=== PATIENT | female | born 1935 | race Caucasian/White ===

== ENCOUNTER 2024-02-22 02:06 | Inpatient (IN) | payer MEDICARE, BC, SELFPAY ==
[2024-02-22] VITALS (17 sets, daily range): BP systolic 124–189; BP diastolic 61–102; PULSE 69–100; BMI 24.2; BMI 24.0
[2024-02-22 00:37] LABS: % Basophils 0.4 % (0-2); % Eosinophils 0.6 % (0-6); % Immature Granulocytes 0.5 % (0-0.5); % Lymphocytes 9.6 % (20.5-51.1); % Monocytes 5.2 % (1.7-9.3); % Neutrophils 83.7 % (42.2-75.2); Absolute Eosinophils 0.1 10^3/uL (0-0.7); Absolute Immature Granulocytes 0.1 10^3/uL (0-0.05); Absolute Lymphocytes 1.1 10^3/uL (1.2-3.4); Absolute Monocytes 0.6 10^3/uL (0.1-0.6); Absolute Neutrophils 9.2 10^3/uL (1.4-6.5); Hematocrit 36.6 % (37.0-47.0); Hemoglobin 12.9 g/dL (12.0-16.0); Mean Corp Hgb Conc. 35.2 g/dL (33.0-37.0); Mean Corpuscular Hgb 30.4 pg (27.0-31.0); Mean Corpuscular Volume 86.1 fL (81.0-99.0); Mean Platelet Volume 9.4 fL (7.4-10.4); Nucleated Red Blood Cells % 0 %; Platelet Count 244 10^3/uL (130-400); Red Blood Cell Count 4.25 10^6/uL (4.20-5.40); Red Cell Dist. Width 12.9 % (11.5-14.5)
--- NOTE | 2024-02-22 00:37 | ED.GENMED ---
History of Present Illness
<ANNALISA Goyal - Last Filed: 02/22/24 02:36>
General
Chief Complaint: Rectal Bleeding
Source: patient and family (daughter)
Exam Limitations: none
Time Seen by Provider: 02/22/24 00:22
Travel History
Have you had any contact with someone who has COVID-19?: No
Do you have any symptoms of coronavirus? Fever > 100 degrees, chills, cough, shortness of breath, sore throat, loss of taste or smell, muscle aches, or headache?: No
History of Present Illness
History of Present Illness:
88 year old female with hx of HTN, HLD, vasovagal syncope, IBS BIBA from home for an episode of rectal bleeding that occurred just prior to arrival. Pt states she has not had a BM for the past 4 days. Yesterday, she went to [facility] and had an orange
creamsicle frosty at about [id number]. Shortly after she developed abdominal cramping and nausea, vomiting, and diarrhea. She had one episode of vomiting. She has had multiple episodes of diarrhea before having bright red blood in her stool. She
admits to straining during BM. Blood was mixed with diarrhea. She reports diffuse mild abdominal discomfort and generalized weakness. States she is thirsty and her throat is dry. Denies fevers/chills, rectal pain, dysuria, hematuria, chest pain,
SOB, recent illness, sick contacts, recent travel. She has a hx of constipation and takes miralax every now and then. She was going to take miralax however she developed diarrhea. Also reports hx of hemorrhoids and will sometimes experience tinged
of blood in her stool however the blood in her stool tonight was more significant. She is on a daily aspirin.
Past History
<ANNALISA Goyal - Last Filed: 02/22/24 02:36>
Past History
ED Past Medical History: Asthma, HTN, Hypercholesterolemia and Other (IBS)
ED Past Surgical History: Gynecological (partial hysterectomy)
Social History
Tobacco: Non-smoker
Alcohol: Occasional
Drug: None
Personal:
Living: with family
Employment: Retired
Family History
Family History: Other (non-contributory )
Review of Systems
<ST Jay JayNH - Last Filed: 02/22/24 02:36>
Review of Systems
Allergies reviewed?: Yes
All Other Systems: ROS reviewed and negative except as documented in HPI and ROS
Constitutional: Reports other (generalized weakness)
EENT: Reports no symptoms
Respiratory: Reports no symptoms
Cardiac: Reports no symptoms
ABD/GI: Reports abdominal pain, nausea, vomiting, diarrhea and bloody stools
: Reports no symptoms
Musculoskeletal: Reports no symptoms
Skin: Reports no symptoms
Neurological: Reports no symptoms
Endocrine: Reports no symptoms
Hematologic/Lymphatic: Reports no symptoms
Psychiatric: Reports no symptoms
Phy Exam
<Pantera Mejia RUST - Last Filed: 02/22/24 02:36>
General Physical Exam
General Presentation: well appearing and no apparent distress
General age: appears stated age
General Skin: warm and dry
General Habitus: elderly
General Mental: alert
General Hydration: dry mucous membranes
Cardiovascular Exam
Cardiovascular Exam: regular rate/rhythm, no edema, no gallop and no murmur
Pulmonary Exam
Pulmonary Exam: lungs clear, no respiratory distress, no rales, no crackles, no rhonchi, no wheezing and no cough
Gastrointestinal Exam
Gastrointestinal Exam: normal bowel sounds, soft, no pulsatile mass, non distended and other (mild mid-abdominal discomfort to palpation)
Skin Exam
Skin Exam: normal color and warm/dry
Psychiatric Exam
Psychiatric Exam: normal mood/affect
Course
<ANNALISA Goyal - Last Filed: 02/22/24 02:36>
Orders/Labs/Results
Orders:
Orders
02/22/24 00:26
Cardiac Monitoring- Treatment ONCE
IV Insert/Care/Rem.- Treatment PRN
O2 Therapy [RESP] Urgent
Titrate/Wean O2 to maintain O2 sat greater than (%): 93
Special Instructions: MAINTAIN CONTINOUS O2 SATS > OR = 93%
Pulse Ox/spot Check [RESP] Urgent
Quantity: 1
Special Instructions: ON ROOM AIR
02/22/24 00:29
Type+Screen Urgent
Complete Blood Count/With Diff Urgent
Comprehensive Metabolic Panel Urgent
PTT Urgent
Prothrombin Time Urgent
02/22/24 00:30
Electrocardiogram (*1) Urgent
Reason for Study: Fatigue / Weakness
02/22/24 00:31
EKG- Treatment ONCE
02/22/24 00:51
0.9% Sodium Chloride 500 ml [Nss] 500 ml IV BOLUS
02/22/24 01:08
CT Abd/pelvis W Iv Cont Urgent
Comment:
Reason For Exam: lower abdominal pain
Stool Culture Urgent
SAMANTHA Source: Feces/Stool
Specimen Description:
02/22/24 01:16
Pantoprazole [Protonix IV] 40 mg IV NOW STA
02/22/24 01:36
Admit/Transfer Patient As Directed
Co-Sign Provider:
Level of Care: Inpatient admission
Assign to:: Telemetry
Physician / Group: htay
Diagnosis: acute hematochezia LGB
Reason for Telemetry: Other
Other Reason for Telemetry: acute hematochezia LGB
Date to Stop Telemetry: 02/24/24
Time to Stop Telemetry: 11:00
Reason for Hospitalization: acute hematochezia LGB
Expected length of stay greater than two midnights?: Yes
ELOS- Estimated Length of Stay in days: 3
I certify the patient meets the requirements for IP care: Yes
02/22/24 01:38
Code Status As Directed
Resuscitation Status: Full Code
02/22/24 08:00
Lisinopril [Zestril] 5 mg PO DAILY
02/24/24 11:00
DC Protocol for Telemetry ONCE
Abnormal Lab Results
02/22/24
00:29
WBC 11.0 H 10^3/uL
(4.8-10.8)
Hct 36.6 L %
(37.0-47.0)
Abs Immat Gran (auto) 0.1 H 10^3/uL
(0-0.05)
Absolute Neuts (auto) 9.2 H 10^3/uL
(1.4-6.5)
Absolute Lymphs (auto) 1.1 L 10^3/uL
(1.2-3.4)
Neutrophils % 83.7 H %
(42.2-75.2)
Lymphocytes % 9.6 L %
(20.5-51.1)
Glucose 142 H mg/dl
(70-99)
02/22/24 00:29
02/22/24 00:29
Vital Signs
Initial and Last Documented VS:
Initial Vital Signs
Temp
98.2 F
02/22/24 00:17
Last Documented Vital Signs
Temp Pulse Resp BP Pulse Ox
98.2 F 81 18 184/74 98
02/22/24 00:20 02/22/24 02:00 02/22/24 00:20 02/22/24 01:46 02/22/24 02:00
<Arnol Zavala MD - Last Filed: 02/22/24 02:39>
Orders/Labs/Results
Orders:
Orders
02/22/24 00:26
Cardiac Monitoring- Treatment ONCE
IV Insert/Care/Rem.- Treatment PRN
O2 Therapy [RESP] Urgent
Titrate/Wean O2 to maintain O2 sat greater than (%): 93
Special Instructions: MAINTAIN CONTINOUS O2 SATS > OR = 93%
Pulse Ox/spot Check [RESP] Urgent
Quantity: 1
Special Instructions: ON ROOM AIR
02/22/24 00:29
Type+Screen Urgent
Complete Blood Count/With Diff Urgent
Comprehensive Metabolic Panel Urgent
PTT Urgent
Prothrombin Time Urgent
02/22/24 00:30
Electrocardiogram (*1) Urgent
Reason for Study: Fatigue / Weakness
02/22/24 00:31
EKG- Treatment ONCE
02/22/24 00:51
0.9% Sodium Chloride 500 ml [Nss] 500 ml IV BOLUS
02/22/24 01:08
CT Abd/pelvis W Iv Cont Urgent
Comment:
Reason For Exam: lower abdominal pain
Stool Culture Urgent
SAMANTHA Source: Feces/Stool
Specimen Description:
02/22/24 01:16
Pantoprazole [Protonix IV] 40 mg IV NOW STA
02/22/24 01:36
Admit/Transfer Patient As Directed
Co-Sign Provider:
Level of Care: Inpatient admission
Assign to:: Telemetry
Physician / Group: htay
Diagnosis: acute hematochezia LGB
Reason for Telemetry: Other
Other Reason for Telemetry: acute hematochezia LGB
Date to Stop Telemetry: 02/24/24
Time to Stop Telemetry: 11:00
Reason for Hospitalization: acute hematochezia LGB
Expected length of stay greater than two midnights?: Yes
ELOS- Estimated Length of Stay in days: 3
I certify the patient meets the requirements for IP care: Yes
02/22/24 01:38
Code Status As Directed
Resuscitation Status: Full Code
02/22/24 08:00
Lisinopril [Zestril] 5 mg PO DAILY
02/24/24 11:00
DC Protocol for Telemetry ONCE
Abnormal Lab Results
02/22/24
00:29
WBC 11.0 H 10^3/uL
(4.8-10.8)
Hct 36.6 L %
(37.0-47.0)
Abs Immat Gran (auto) 0.1 H 10^3/uL
(0-0.05)
Absolute Neuts (auto) 9.2 H 10^3/uL
(1.4-6.5)
Absolute Lymphs (auto) 1.1 L 10^3/uL
(1.2-3.4)
Neutrophils % 83.7 H %
(42.2-75.2)
Lymphocytes % 9.6 L %
(20.5-51.1)
Glucose 142 H mg/dl
(70-99)
02/22/24 00:29
02/22/24 00:29
Vital Signs
Initial and Last Documented VS:
Initial Vital Signs
Temp
98.2 F
02/22/24 00:17
Last Documented Vital Signs
Temp Pulse Resp BP Pulse Ox
98.2 F 81 18 184/74 98
02/22/24 00:20 02/22/24 02:00 02/22/24 00:20 02/22/24 01:46 02/22/24 02:00
<ANNALISA Goyal - Last Filed: 02/22/24 02:36>
MDM/Problems Addressed
Differential Diagnosis Includes:
hemorrhoidal bleed, lactose intolerance, ischemic colitis, diverticulitis, diverticulosis
MDM/Problems Addressed:
88 year old female who presents with an episode of bloody stool that occurred just prior to arrival.
Chronic conditions affecting care: HTN, Asthma and Cancer
<ANNALISA Goyal - Last Filed: 02/22/24 02:36>
*Critical Care Note
Total Time (30-74mins, 75-104mins- exclusive of procedures): Not Applicable
<Arnol Zavala MD - Last Filed: 02/22/24 02:39>
*EKG
Interpreted by ED Provider?: Yes
EKG Intrepretation Date: 02/22/24
Heart Rate: 63
Rate: normal
Rhythm: sinus
Tynan: normal axis
ED Attending Note
<ANNALISA Goyal - Last Filed: 02/22/24 02:36>
-
Portions of this chart may have been created with voice recognition software.� Occasional wrong word or��sound alike� substitutions may have occurred due to the inherent limitations of voice recognition software.
<Arnol Zavala MD - Last Filed: 02/22/24 02:39>
ED Attending Note
Patient seen and examined by attending physician: Yes
ED Attending Note:
Patient presents to ED secondary to multiple episodes of diarrhea, which has become bloody with last 3 diarrheal episodes, along with abdominal cramping sensation. Patient reports generalized weakness. Denies dizziness or shortness of breath.
Denies recent change in medications or diet. Denies previous history of similar symptoms. Patient takes aspirin 81 mg daily. Denies recent illness. Denies recent use of antibiotics.
Physical Exam
General: mild distress, not acutely ill. afebrile
Head: nc/at. eomi
Neck: supple. no meningeal signs.
Heart: s1/s2 regular rate and rhythm, no murmur. equal radial pulses.
Lungs: no acute respiratory distress. clear bilaterally
Abdomen: normal bowel sounds. no focal tenderness. no distention. Rectal exam (Bettye RN, at bedside): brown stool, heme positive. Small fissure noted at 12 o'clock without active bleeding
Neuro: alert and oriented. no focal neurological deficits
Skin: no rash
Psychiatric: well kept. interactive and cooperative
Extremities: no edema. no calf tenderness
H/H noted. Pt remains hemodynamically stable. Will admit for further evaluation and treatment.
CT abd/pel ordered due to persistent abdominal discomfort.
CT abd/pel: ischemic colitis findings. Zosyn given. Notified GI () via [employer].
Discharge Plan
Departure
Patient Disposition: Admit
Date of Disposition: 02/22/24
Time of Disposition: 01:17
Admit to: Telemetry
Presentation/result/management discussed w/ accepting MD/DO: Hospitalist
Discharge Problem:
GI bleed
Interventions
Interventions:
*Risk Screen - Suicide Last Done: 02/22/24 00:20
*General Assessment Last Done: 02/22/24 00:20
*Neglect/Abuse Screening Last Done: 02/22/24 00:20
ED- Fall Risk Assessment Last Done: 02/22/24 00:39
*ED COVID-19 Vaccine History Last Done: 02/22/24 00:20
*Nursing Disposition Last Done: 02/22/24 02:34
YG-Sscykr-Wkdgxkptin Assessment Last Done: 02/22/24 01:03
ED- Cardiac Assessment Last Done: 02/22/24 00:39
ED- Pulmonary Assessment Last Done: 02/22/24 00:39
Discharge Date and Time
Discharge Date/Time: 02/22/24 02:35
[2024-02-22 00:49] LABS: ALT (SGPT) 16 U/L (0-35); AST (SGOT) 25 U/L (14-36); Albumin 4.5 g/dl (3.5-5.0); Alkaline Phosphatase 75 U/L (38-126); Blood Urea Nitrogen 14 mg/dl (7-17); Calcium 9.9 mg/dl (8.4-10.2); Carbon Dioxide 26 mmol/L (22-30); Chloride 102 mmol/L (98-107); Estimated Creatinine Clearance 50 ml/min; Glucose 142 mg/dl (70-99); Potassium 4.1 mmol/L (3.5-5.1); Sodium 139 mmol/L (135-145); Total Protein 7.2 g/dl (6.3-8.2); eGFR > 60.00
[2024-02-22 00:57] LABS: APTT 26.6 Sec (23.4-35.0); INR 1.07; PT 13.7 Sec (11.4-14.6)
[2024-02-22] MEDS: NSS 500 IV (01:05)
--- NOTE | 2024-02-22 01:33 | HPS.HSE ---
Addendum entered and electronically signed by Avinash Comer MD 02/22/24 02:36:
Prelim CT AP: ischemic colitis
- agree with Zosyn
- GI was notified by ER
Original Note:
Family Physician
-
Family Physician: Gisel Guerrero
Chief Complaint
-
Blood pr rectum
History of Present Illness
83F HX HTN, HLD , IBS, vasovagal syncope on ASA seen at ER for evaluation of blood with BM
Abrupt onset of rectal bleed
- Yesterday evening she had orange cre[place]sty [place] [employer] [place]
- 1 - 2hrs later crampy abdominal pain,nausea , vomiting at dirrhea
- Then tonight noted blood mixed with dirrhea
- she has been constipated for last 4 days
- on daily Asa
Medical History
Past Medical History
Past Medical History: Reports HTN, Hypercholesterolemia and Other (IBS )
Past Surgical History: Reports Gynocological (partial hysterectomy))
Social History
Tobacco: Non-smoker
Alcohol: Occasional
Personal:
Living: With Family
Family History
Family History: Not pertinent
Allergies / Home Medications
Allergies reflects when Allergies were last updated in [employer].
Home Medications with original date entered in [employer]
Allergy/Medication List:
Allergies
Allergy/AdvReac Type Severity Reaction Status Date / Time
amoxicillin [Amoxicillin] AdvReac Severe diarrhea Verified 02/22/24 00:16
molds/dust Allergy Unknown Uncoded 02/22/24 00:16
Home Medications
aspirin 81 mg tablet,delayed release 81 mg PO HS 10/09/09
calcium carbonate 600 mg-vitamin D3 20 mcg (800 unit) tablet (Caltrate with Vitamin D3) 1 ea PO HS 10/09/09
multivitamin with folic acid 400 mcg tablet (Tab-A-Jessica) 1 tab PO HS 10/09/09
pravastatin 40 mg tablet 20 mg PO HS 10/09/09
lisinopril 5 mg tablet 5 mg PO DAILY 02/22/24
Review of Systems
-
Constitutional: Reports No Symptoms
EENT: Reports No Symptoms
Respiratory: Reports No Symptoms
Cardiac: Reports No Symptoms
Abdomen/GI: Reports Abdominal Pain, Nausea, Vomiting, Diarrhea and Bloody Stools
: Reports No Symptoms
Musculoskeletal: Reports No Symptoms
Skin: Reports No Symptoms
Neurological: Reports No Symptoms
Endocrine: Reports No Symptoms
Hematologic/Lymphatic: Reports No Symptoms
Psych: Reports No Symptoms
Physical Exam
Vital Signs
Vital Signs
Temp Pulse Resp BP Pulse Ox
98.2 F 72 18 189/78 97
02/22/24 00:20 02/22/24 00:20 02/22/24 00:20 02/22/24 00:20 02/22/24 00:20
Physical Exam
General: No Apparent Distress, Comfortable and Conversant
HEENT: NormoCephalic, Anicteric, Moist mucous membranes and Atraumatic
Respiratory: Clear
Cardiac: S1/S2 and Regular Rhythm; No Tachycardia
Breast: Deferred by me
GI: Soft, Non Tender, Non Distended and Normal Bowel Sounds
Rectal: Hem Positive (bown stool per ER attd )
Genito-urinary: Deferred by me
Musculoskeletal: No Edema
Skin: Warm and Dry
Neuro: AO x 3
Psych: Calm
Laboratory Results
-
02/22/24 00:29
02/22/24 00:29
Laboratory Results
PT 13.7 Sec (11.4-14.6) 02/22/24 00:29
INR 1.07 02/22/24 00:29
APTT 26.6 Sec (23.4-35.0) 02/22/24 00:29
Total Bilirubin 1.0 mg/dl (0.2-1.3) 02/22/24 00:29
AST 25 U/L (14-36) 02/22/24 00:29
ALT 16 U/L (0-35) 02/22/24 00:29
Alkaline Phosphatase 75 U/L (38-126) 02/22/24 00:29
Data Reviewed
-
Medical Tests (Nuc Med, Echo, EKG etc): Report Reviewed by me
Lab Data: Labs Reviewed by me
Impression/Plan
-
Reviewed VS: Afebrile BP 188/78 HR 70s
Data
WCC 11
Hgb 12.9 - was 12.7 08/26/23
Unremarkable CMP
BG 142
EKG report
NORMAL SINUS RHYTHM
NORMAL ECG
WHEN COMPARED WITH ECG OF 03-AUG-2021 12:07,
NO SIGNIFICANT CHANGE WAS FOUND
Stool Cx sent
CT AP with IV cont: pending
NO PRIOR hospitalist admission:
ASSESSMENT & PLAN
Acute hematochezia LGIB
DDX: infective colitis vs ischemic colitis vs hemorrhoids
- preceded by acute enterocolitis symptoms
- Hemodynamically stable
- Hgb 12.9
- NPO and IVF
- T & S
- Blood consented and scanned
- held ASA
- H & H
- pending CT AP with IV cont
- GI consult
Systolic HTN
Essential HTN
- IV Hydralazine PRN for SBP > 165, DBP > 110
- cont Lisinopril - hold for SBP < 130
HX IBS
HX vasovagal syncope
DVT Px: SCD
Code: Full
IP TLM
[2024-02-22] MEDS: PROTONIX IV 40 MG IV ×2 (01:48→07:26)
[2024-02-22] MEDS: ZOSYN 50 IV ×4 (02:29→20:56)
[2024-02-22 03:02] LABS: Hematocrit 36.6 % (37.0-47.0); Hemoglobin 12.8 g/dL (12.0-16.0)
[2024-02-22 03:03] LABS: Lactic Acid 1.3 mmol/L (0.7-2.0)
[2024-02-22] MEDS: NSS 1000 IV (03:27)
[2024-02-22 03:29] LABS: ALT (SGPT) 15 U/L (0-35); AST (SGOT) 21 U/L (14-36); Alkaline Phosphatase 77 U/L (38-126); Blood Urea Nitrogen 12 mg/dl (7-17); Calcium 9.5 mg/dl (8.4-10.2); Carbon Dioxide 20 mmol/L (22-30); Chloride 109 mmol/L (98-107); Estimated Creatinine Clearance 50 ml/min; Glucose 128 mg/dl (70-99); Sodium 139 mmol/L (135-145); Total Bilirubin 1.1 mg/dl (0.2-1.3); Total Protein 6.7 g/dl (6.3-8.2); eGFR > 60.00
--- NOTE | 2024-02-22 03:31 | VATNOTE ---
H/H STABLE AT 12.8/32.6. WILL NOT ESTABLISH 2ND LARGE BORE IV AT THIS TIME.
[2024-02-22] MEDS: LIDOCAINE 4% PATCH 1 PATCH TOPICAL ×2 (04:44→20:56)
--- NOTE | 2024-02-22 06:54 | CON.GI ---
Addendum entered and electronically signed by Bibiana Hamilton DO 02/22/24 10:36:
Patient seen and examined independently of MAGDALENA. I agree with her note with my additions below
Jayleen is an 88-year-old female with history of hypertension, chronic constipation who comes in with acute onset abdominal pain after no bowel movements after 4 days. On while sitting on the toilet became diaphoretic and almost syncopized. Then
onset of nausea vomiting bowel movement started which then turned bloody. Her last bloody bowel movement was last night. On admission she has no severe risk factors for significant ischemia.
Her white count is 11,000, sodium 139, no LDH drawn but lactic acid was normal at 1.3. She is normotensive,, hemoglobin 11.7. She had a similar episode back in 2020 but at that time did not have any rectal bleeding. She does not take anything for
constipation other than occasional MiraLAX. She does have some mild dysphagia-like symptoms and indigestion and takes Gaviscon.
Her last colonoscopy was 2005 and was normal at that time. She is on a daily aspirin and pravastatin.
# Likely mild ischemic colitis -supportive therapy
-- Ideally flexible sigmoidoscopy for confirmation
-- Clear liquids/bowel rest, IV fluids, broad-spectrum antibiotics for now especially in the setting of bleeding
-- Reviewed CT scan -the distribution of her inflammation is more of the SHARATH, doubt embolic event but more likely low flow state during straining and constipation -consider vascular consult
-- Goal in the future will be prevention of constipation with daily MiraLAX
-- Once daily PPI for now
Original Note:
Consultation
-
Date/Time Consultation Requested: 02/22/24 0240
Date/Time Consultation Performed: 02/22/24 0800
Requesting Provider: Radha Comer MD
Performing Provider: MAGDALENA Lees, Bibiana Hamilton DO
Reason for Consultation: bloody stools
Medical History
Chief Complaint / HPI
Chief Complaint: rectal bleeding
History of Present Illness:
Pt is a 88yo with hx intermittent asthma, basal cell CA, HTN, hypercholesterolemia, vasovagal syncope and chronic constipation. She relates she went to [facility] yesterday then had a frosty from [employer] then went to the [employer] store. On return home
she had crampy pain after no stool for 4 days which is typical for her. She had sweat and feeling of passing out prompting her to lay on floor. She passed hard stool then soft stool with onset of nausea and vomiting food she had eaten. She then
started with blood stool til about midnight .On admission WBC 11,000 with otherwise stable labs . CT concern for ischemic colitis with SMA and SHARATH watershed territory. also noted moderate HH, non obstructing renal stones, atherosclerosis and DDD.
Last colonoscopy [address] Garvin with diverticulosis, external and internal hemorrhoids.
She admits to hx GERD with gaviscon as needed. She denies chronic dysphagia, vomiting other than yesterday. She has chronic constipation with stools every 4-5 days. No chronic laxative regiment. Will add miralax but not til day 4 or 5. After
passes stools she will have diarrhea. Saw blood yesterday but typically does not have rectal bleeding.
Past Medical History
Past Medical History: Asthma, Cancer (melanoma, basal cell CA), HTN, Hypercholesterolemia and Other (vasovagal syncope, IBS, DDD, diverticulosis, hemorrhoids )
Past Surgical History: Other (partial hysterectomy, melanoma removal, cataract lens implants, mohs surgery)
Social History
Tobacco: Non-Smoker
Alcohol: Occasional (rare)
Drug: None
Personal:
Living: With Family
Employment: Retired
Family History
Family History: Reviewed & Not Pertinent
Allergies / Home Medications
Allergy/AdvReac Type Severity Reaction Status Date / Time
amoxicillin [Amoxicillin] AdvReac Severe diarrhea Verified 02/22/24 00:16
molds/dust Allergy Unknown Uncoded 02/22/24 00:16
�Medication �Instructions �Recorded
aspirin 81 mg tablet,delayed 81 mg PO HS 10/09/09
release
calcium carbonate 600 mg-vitamin 1 ea PO HS 10/09/09
D3 20 mcg (800 unit) tablet
(Caltrate with Vitamin D3)
multivitamin with folic acid 400 1 tab PO HS 10/09/09
mcg tablet (Tab-A-Jessica)
pravastatin 40 mg tablet 20 mg PO HS 10/09/09
lisinopril 5 mg tablet 5 mg PO DAILY 02/22/24
Review of Systems
-
History Source: Patient
Constitutional: Reports Weight Loss (recent issue with teeth with some wt loss ) and Other (sweats with onset of abdominal pain and straining )
EENT: Reports No Symptoms
Respiratory: Reports No Symptoms
Abdomen/GI: Reports Abdominal Pain, Nausea, Vomiting, Constipated and Bloody Stools
: Reports No Symptoms
Musculoskeletal: Reports No Symptoms
Skin: Reports No Symptoms
Neurological: Reports Weakness
Endocrine: Reports No Symptoms
Hematologic/Lymphatic: Reports Bleeding
Vital Signs
Temp Pulse Resp BP Pulse Ox
98.5 F 73 16 180/74 97
02/22/24 03:00 02/22/24 03:00 02/22/24 03:00 02/22/24 03:00 02/22/24 04:57
Physical Exam
Exam
General: Well Developed, Well Nourished and No Apparent Distress
HEENT: Normocephalic
Respiratory: Clear
Cardiac: Regular Rhythm
GI: Soft, Non Distended and Tender (mild diffuse )
Musculoskeletal: No Clubbing and No Cyanosis
Skin: Warm and Dry
Neuro: Awake, Alert and AO x 3
Psych: Calm
Results
WBC 11.0 10^3/uL (4.8-10.8) H 02/22/24 00:29
Hgb 12.8 g/dL (12.0-16.0) 02/22/24 02:55
Hct 36.6 % (37.0-47.0) L 02/22/24 02:55
MCV 86.1 fL (81.0-99.0) 02/22/24 00:29
Plt Count 244 10^3/uL (130-400) 02/22/24 00:29
Absolute Neuts (auto) 9.2 10^3/uL (1.4-6.5) H 02/22/24 00:29
PT 13.7 Sec (11.4-14.6) 02/22/24 00:29
INR 1.07 02/22/24 00:29
APTT 26.6 Sec (23.4-35.0) 02/22/24 00:29
Sodium 139 mmol/L (135-145) 02/22/24 02:55
Potassium 4.0 mmol/L (3.5-5.1) 02/22/24 02:55
Chloride 109 mmol/L (98-107) H 02/22/24 02:55
Carbon Dioxide 20 mmol/L (22-30) L 02/22/24 02:55
BUN 12 mg/dl (7-17) 02/22/24 02:55
Creatinine 0.5 mg/dL (0.6-1.0) L 02/22/24 02:55
Calcium 9.5 mg/dl (8.4-10.2) 02/22/24 02:55
Total Bilirubin 1.1 mg/dl (0.2-1.3) 02/22/24 02:55
AST 21 U/L (14-36) 02/22/24 02:55
ALT 15 U/L (0-35) 02/22/24 02:55
Alkaline Phosphatase 77 U/L (38-126) 02/22/24 02:55
Diagnostic Image Results:
02/22/24 CT Abd/pelvis W Iv Cont
Findings are concerning for ischemic colitis in the SMA-SHARATH watershed territory. No free air. No free fluid or fluid collection. No bowel obstruction.
Incidental findings:
1. Moderate hiatal hernia.
2. Nonobstructing calcification right kidney. No hydronephrosis.
3. Prior hysterectomy. Moderate pelvic floor laxity.
4. Moderate atherosclerotic vascular disease of the aorta. No aneurysm. 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
5. Multilevel degenerative disk and joint disease with scoliosis.
Prior GI Procedures:
EGD: none
Colonoscopy: [address] Garvin with diverticulosis, external and internal hemorrhoids.
Assessment / Plan
-
Pt is a 88yo with hx intermittent asthma, basal cell CA, HTN, hypercholesterolemia, vasovagal syncope and chronic constipation. She relates she went to [facility] 02[place]20 then had a frosty from [employer] then went to then [employer]. On return home she
had crampy pain after no stool for 4 days which is typical for her. She had sweat and feeling of passing out prompting her to lay on floor. She passed hard stool then soft stool with onset of nausea and vomiting food she had eaten. She then
started with blood stool til about midnight .On admission WBC 11,000 with otherwise stable labs . CT concern for ischemic colitis with SMA and SHARATH watershed territory. also noted moderate HH, non obstructing renal stones, atherosclerosis and DDD.
Last colonoscopy [address] Garvin with diverticulosis, external and internal hemorrhoids.
-CT concern for ischemic colitis on CT
-straining followed hard then loose stool then blood with vomiting
-chronic constipation
-hx vasovagal syncope with episode prior to admission
other med problems:
-asthma
-basal cell CA
-HTN
-hypercholesterolemia
PLAN:
etiology of symptoms with concern for colitis- likely ischemic as noted on CT, vs infectious, stercoral colitis with hx constipation, IBD within differential
CT as noted
supportive care-- maintain adequate perfusion, hydration
discussed chronic constipation-- pt need bowel regiment-- start with Miralax daily adjusting dose as needed in 2-3 weeks add fiber supplement and consider adding senna
IV Zosyn
NPO advance to clears if tolerates and no bleeding low residue dinner
if not improving consider flex
sent message to arrange 3-4 week follow up
-
-
Thank you for consultation and allowing me to participate in the patient's care. Please call the reconditioner GI physician during the after hours with any questions or concerns.
[2024-02-22] MEDS: ZESTRIL 5 MG PO (07:27)
[2024-02-22 07:33] LABS: Hemoglobin 11.7 g/dL (12.0-16.0)
--- NOTE | 2024-02-22 10:53 | W.PN.UPDATE ---
Update Note
Progress Note Update
Seen and examined with ABDIEL Powell. Full consultation to follow. Briefly 88-year-old female who presented after developing crampy abdominal pain and diarrhea with blood following eating an orange-creamsicle at [employer]. She was evaluated by GI and
felt to possibly have ischemic colitis. CT scan had demonstrated some calcific plaque at the origin of the visceral vessels suggesting possible stenoses. Therefore we were consulted. Patient denies any postprandial pain otherwise. She has never
had postprandial pain. No food fear. No history of vascular issues that she is aware of (no prior history of any peripheral arterial or cardiac/coronary interventions). Denies any tobacco use.
On exam she is awake and alert. Head is normocephalic and atraumatic. Eyes are anicteric. Neck is soft without jugular venous distention. Breathing is unlabored. Abdomen is soft, nondistended, mildly tender diffusely. No peritoneal signs.
Lower extremity with 2+ femoral, popliteal pulses palpable bilaterally. 1+/faint to right DP palpable, 1+ left PT palp. Feet are warm and pink and well-perfused, no rubor, no ulcerations.
CT scan images reviewed.
Plan/ Ischemic colitis
-I reviewed CT scan images. I spoke to tomography technologist and was able to have her upload thin cuts of the CT scan. When I reviewed the thin cuts (see select images below), there is no evidence of stenosis at the celiac or SMA origin or within
those vessels. There is some plaque more so at the origin of the celiac artery, but does not result in any significant stenosis. The SHARATH also is patent without significant stenosis. There is plaque in the vicinity of the origin of the SHARATH but at
that location in the aorta, the plaque is posterior and not abutting the origin of SHARATH. Therefore, there is no evidence of mesenteric stenoses. Nothing here for me to offer otherwise. Recommend continue GI workup and management as needed.
ORIGIN OF CELIAC:
ORIGIN OF SMA:
ORIGIN OF SHARATH:
--- NOTE | 2024-02-22 11:18 | CON.VAS ---
Consultation
Consultation Request
Date/Time Consultation Performed: 02/22/2024 1045
Requesting Provider: Hospitalist
Performing Provider: Anika Powell LEAD BUSINESS ANALYST-C for Aime Becerra MD
Reason for Consultation: Ischemic colitis with concern for SMA hemodynamically significant stenosis
Medical History
-
Chief Complaint: ABD pain with blood tinged stool
History of Present Illness:
This is an 88-year-old female with significant past medical history of asthma, hypertension, hyponatremia, and IBS who presented to [facility] ED after developing crampy abdominal pain and diarrhea with blood following eating an orange-creamsicle at
[employer]. She endorses that she usually suffers from constipation and has not had a bowel movement roughly 4 days, following straining she did expel a large stool ball with significant diarrhea following with a mix of bright red blood. Following
this episode of straining she did have a vasovagal response with lightheaded and dizziness but denies loss of consciousness. She endorses following her bowel movement she began experiencing abdominal pain. She does endorse history of hemorrhoids.
She was evaluated by GI and felt to possibly have ischemic colitis. CT scan had demonstrated some calcific plaque at the origin of the visceral vessels suggesting possible stenoses. Therefore vascular surgery was consulted. Patient denies any
postprandial pain otherwise. She has never had postprandial pain. No food fear. No history of vascular issues that she is aware of (no prior history of any peripheral arterial or cardiac/coronary interventions). Denies any tobacco use. She does
endorse minimal recent weight loss but attributes this to her ill fitting dentures, making it difficult for her to chew.
Past Medical History
Past Medical History: Asthma, Cancer (melanoma, basal cell CA), HTN, Hypercholesterolemia and Other (IBS, DDD, diverticulosis, hemorrhoids)
Past Surgical History: Gynecological (partial hysterectomy) and Other (melanoma removal, cataract lens implants, mohs surgery)
Social History
Tobacco: Non-Smoker
Alcohol: Occasional
Drug: None
Personal:
Living: With Family
Allergies / Home Medications
Allergy/AdvReac Type Severity Reaction Status Date / Time
amoxicillin [Amoxicillin] AdvReac Severe diarrhea Verified 02/22/24 00:16
molds/dust Allergy Unknown Uncoded 02/22/24 00:16
�Medication �Instructions �Recorded �Confirmed �Type
aspirin 81 mg tablet,delayed 81 mg PO HS 10/09/09 02/22/24 History
release
calcium carbonate 600 mg-vitamin 1 ea PO HS 10/09/09 02/22/24 History
D3 20 mcg (800 unit) tablet
(Caltrate with Vitamin D3)
multivitamin with folic acid 400 1 tab PO HS 10/09/09 02/22/24 History
mcg tablet (Tab-A-Jessica)
pravastatin 40 mg tablet 20 mg PO HS 10/09/09 02/22/24 History
lisinopril 5 mg tablet 5 mg PO DAILY 02/22/24 02/22/24 History
Review of Systems
-
History Source: Patient
Constitutional: Reports Weight Loss (Reports recent weight loss due to ill fitting dentures)
EENT: Reports No Symptoms
Respiratory: Reports No Symptoms
Cardiac: Reports No Symptoms
Abdomen/GI: Reports Abdominal Pain, Nausea, Diarrhea, Constipated and Bloody Stools
: Reports No Symptoms
Musculoskeletal: Reports No Symptoms
Skin: Reports No Symptoms
Neurological: Reports Weakness
Endocrine: Reports No Symptoms
Physical Exam
Vital Signs
Temp Pulse Resp BP Pulse Ox
98.4 F 71 14 156/67 96
02/22/24 11:00 02/22/24 11:00 02/22/24 11:00 02/22/24 11:00 02/22/24 11:00
Lab Results
02/22/24 02:55
Physical Exam
General: No Apparent Distress and Comfortable
HEENT: Normocephalic, Anicteric and Atraumatic
Respiratory: Non Labored Respirations
Cardiac: Negative JVD
GI: Soft, Non Distended and Tender (mildly tender diffusely. No peritoneal signs)
Musculoskeletal: No Edema
Skin: Warm, Dry and Other (Feet are warm and pink and well-perfused, no rubor, no ulcerations.)
Neuro: AO x 3
Pulses: Bilateral Femoral: +2, Bilateral Popliteal: +2, Right Dorsalis Pedis: +1 and Left Posterior Tibial: +1
Assessment / Plan
-
Assessment: 88-year-old female admitted for bloody stool and abdominal pain with CT scan concerning for ischemic colitis and concern for SMA origin stenosis
Plan:
Reviewed CT scan images with attending Dr. Aime Becerra who was able to upload thin cuts of the CT scan, which demonstrate no evidence of stenosis at the celiac or SMA origin or within those vessels. Per attending Dr. Aime Becerra 'there is some plaque
more so at the origin of the celiac artery, but does not result in any significant stenosis. The SHARATH also is patent without significant stenosis. There is plaque in the vicinity of the origin of the SHARATH but at that location in the aorta, the
plaque is posterior and not abutting the origin of SHARATH. Therefore, there is no evidence of mesenteric stenoses.'
There is no need for surgical intervention at this time, recommend continue GI workup and management as needed.
I performed this shared service with the attending. I evaluated the patient [id number] and have entered clinical documentation as shown in the encounter note. I performed the following component(s): history and physical exam. Note that medical
decision making is not final until attested by vascular attending.
[2024-02-22 13:04] LABS: Hematocrit 35.2 % (37.0-47.0); Hemoglobin 12.2 g/dL (12.0-16.0)
[2024-02-22] MEDS: MORPHINE SULFATE 2 MG IV (13:07)
--- NOTE | 2024-02-22 15:33 | CM ---
Initial assessment completed with patient who resides with her in a 2 story home with basement and 1/2 bath on 1st, B/B on 2nd, no steps into home, has a RW in home and no in-home services. FAMILY LAW MEDIATOR patient was independent and drove. No
psychiatric hospitalizations. Pharmacy is [facility] in [place] and ART MUSEUM AIDE is Gisel Guerrero NP. Anticipate no needs at discharge.
[2024-02-22 18:51] LABS: Hematocrit 31.1 % (37.0-47.0); Hemoglobin 10.9 g/dL (12.0-16.0)
[2024-02-23 02:05] LABS: Hematocrit 31.5 % (37.0-47.0); Hemoglobin 10.9 g/dL (12.0-16.0)
[2024-02-23] MEDS: ZOSYN 50 IV ×4 (02:28→19:39)
[2024-02-23 03:33] VITALS: BP 107/66; BP 130/80; BP 138/66; PULSE 83; PULSE 91
[2024-02-23] MEDS: NSS 1000 IV (06:53)
[2024-02-23 07:05] VITALS: BP 143/54
[2024-02-23 07:41] LABS: Hematocrit 33.9 % (37.0-47.0); Hemoglobin 11.4 g/dL (12.0-16.0); Mean Corp Hgb Conc. 33.6 g/dL (33.0-37.0); Mean Corpuscular Hgb 30.2 pg (27.0-31.0); Mean Corpuscular Volume 89.7 fL (81.0-99.0); Mean Platelet Volume 9.9 fL (7.4-10.4); Platelet Count 219 10^3/uL (130-400); Red Blood Cell Count 3.78 10^6/uL (4.20-5.40); Red Cell Dist. Width 13.2 % (11.5-14.5); White Blood Cell Count 12.1 10^3/uL (4.8-10.8)
[2024-02-23] MEDS: ZESTRIL 5 MG PO (08:17)
[2024-02-23] MEDS: PROTONIX IV 40 MG IV (08:18)
[2024-02-23] MEDS: MIRALAX 17 GRAMS PO (08:18)
--- NOTE | 2024-02-23 10:06 | W.PN.HOSP.TC ---
Today's Communication/Plan
-
Follow-up for recurrence of rectal bleeding. Continue bowel regimen.CW ABX.
DC planning
Assessment / Plan
Assessment / Plan
Acute hematochezia
Suspected ischemic colitis based on clinical presentation and neurological impression.
No evidence of obstruction of celiac artery. Appreciate vascular input.
EKG in sinus rhythm. No history of cardiac disease.
Unclear etiology. Based on the CAT scan it is watershed area. Advised to keep the blood pressure not too low, avoid dehydration and most importantly treat constipation. This is her first episode. Unclear the role of hypercoagulable workup.
Seems to be a mild case. Hemodynamically stable. Abdominal pain quickly improved.
Appreciate GI input.
Continue the bowel regimen and we will keep her on empirical antibiotics. Need to follow-up endoscopic eval.
Essential HTN
- BP under goal and not too low
HX IBS
HX vasovagal syncope
tolerating diet.
DC home when okay from GI standpoint.
Anticipated Discharge: Today
Subjective/Interval History
-
Date of Service: February 23, 2024
No BM or rectal bleeding today.
She was put on a solid diet which she had for breakfast and seems to tolerate without nausea vomiting or abdominal pain. No fever or chills.
Objective Data
-
Labs:
Laboratory Results
02/23/24 02/23/24
01:57 06:17
WBC 12.1 H
Hgb 10.9 L 11.4 L
Hct 31.5 L 33.9 L
Plt Count 219
Vital Signs:
Vital Signs
Temp Pulse Resp BP Pulse Ox
98.3 F 72 14 143/54 92
02/23/24 07:05 02/23/24 08:17 02/23/24 07:05 02/23/24 08:17 02/23/24 07:05
I&O
02/22/24 02/23/24 02/24/24
06:59 06:59 06:59
Intake Total 720 / 720
Balance 720 / 720
Review of Systems
-
Constitutional: Denies Fever
Respiratory: Denies Trouble Breathing
Cardiac: Denies Chest Pain or Palpitations
Abdomen/GI: Reports Abdominal Pain (much improved)
Neuro: Denies Dizzy
Physical Exam
-
General: No Apparent Distress
HEENT: Moist Mucous Membranes
Respiratory: Clear to Auscultation
Cardiac: Regular Rhythm and S1/S2
GI: Soft, Nondistended and Normal Bowel Sounds; Negative Tender (mild discomfort in left abdomen but Rebound, guarding or rigidity.)
Neuro: AO x 3
Psych: Calm; Negative Confused or Agitated
Data Reviewed
-
Labs: Labs Reviewed by me
[2024-02-23 11:00] VITALS: BP 124/61
[2024-02-23 15:00] VITALS: BP 140/70
--- NOTE | 2024-02-23 15:53 | W.PN.GI.CBS2 ---
Addendum entered and electronically signed by Bibiana Hamilton DO 02/23/24 18:09:
Patient seen and examined independently of BLACKSMITH HAMMER OPERATOR. I agree with her note with my additions below
Patient is still mildly tender and has had about 4 bowel movements today but they are mostly brown with minimal to no blood.
Her white count went up slightly from 11-12. She is afebrile. Hemoglobin stable at 11.4 with no transfusions. Vitals are stable, afebrile, normotensive, not tachycardic
--Would stick to more of a full liquid diet. I told her not to order any significant solid foods. Things like mashed potatoes would be okay
- Would continue antibiotics in the setting of bleeding to help prevent translocation of bacteria
--Currently refusing biopsy with flex sig. Told her if she comes back with this in the future she needs biopsies for confirmation and to look for ulceration
--No point in really doing this outpatient at her age when she is feeling good.
� The goal is prevention for reoccurrence. Highly recommend prevention of constipation.
--She likely has been getting recurrent episodes of this and will have no bowel movements for 5 days then explosive with pain and near syncope
� Patient and daughters are aware that she will stay on once daily MiraLAX to prevent episodes. She is in agreement
--If she does well clinically, potential discharge tomorrow but would finish up at least a 7-day course of antibiotics
-- follow up with PCP, then GI in a 1-2 months
Original Note:
Today's Communication / Plan
-
etiology of symptoms with concern for colitis- likely ischemic as noted on CT, vs infectious, stercoral colitis with hx constipation, IBD within differential
supportive care-- maintain adequate perfusion, hydration
c-diff, giardia/crypto neg culture pending
discussed chronic constipation-- pt need bowel regiment-- cont Miralax daily adjusting dose as needed in 2-3 weeks add fiber supplement and consider adding senna- stressed to family to encourage compliance with bowel regiment
IV Zosyn
discussed again about flex with patient and family -- she is not sure she wants to proceed-- she will further review with Dr. Hamilton-- she is agreeable for follow up and if any recurrent process would agree to inpatient flex
sent message 02/21 to office to arrange 3-4 week follow up
s/p vascular eval
family updated
Assessment / Plan
-
Pt is a 88yo with hx intermittent asthma, basal cell CA, HTN, hypercholesterolemia, vasovagal syncope and chronic constipation. She relates she went to [facility] 02/20 then had a frosty from [employer] then went to then [employer]. On return home she
had crampy pain after no stool for 4 days which is typical for her. She had sweat and feeling of passing out prompting her to lay on floor. She passed hard stool then soft stool with onset of nausea and vomiting food she had eaten. She then
started with blood stool til about midnight .On admission WBC 11,000 with otherwise stable labs . CT concern for ischemic colitis with SMA and SHARATH watershed territory. also noted moderate HH, non obstructing renal stones, atherosclerosis and DDD.
Last colonoscopy [address] Garvin with diverticulosis, external and internal hemorrhoids.
-CT concern for ischemic colitis on CT
-straining followed hard then loose stool then blood with vomiting
-chronic constipation
-hx vasovagal syncope with episode prior to admission
-occasional dysphagia- chronic
other med problems:
-asthma
-basal cell CA
-HTN
-hypercholesterolemia
-HH on imaging
PLAN:
etiology of symptoms with concern for colitis- likely ischemic as noted on CT, vs infectious, stercoral colitis with hx constipation, IBD within differential
supportive care-- maintain adequate perfusion, hydration
c-diff, giardia/crypto neg culture pending
discussed chronic constipation-- pt need bowel regiment-- cont Miralax daily adjusting dose as needed in 2-3 weeks add fiber supplement and consider adding senna- stressed to family to encourage compliance with bowel regiment
IV Zosyn
discussed again about flex with patient and family -- she is not sure she wants to proceed-- she will further review with Dr. Hamilton-- she is agreeable for follow up and if any recurrent process would agree to inpatient flex
sent message 02/21 to office to arrange 3-4 week follow up
s/p vascular eval
updated family
Subjective
Subjective
Date of Service: February 23, 2024
on low residue diet several stools since yesterday -- initially with blood then less bleeding last stool feeling better
Objective
Data Reviewed
Laboratory Data:
Laboratory Results
02/23/24 06:17
02/22/24 02:55
Laboratory Results
PT 13.7 Sec (11.4-14.6) 02/22/24 00:29
INR 1.07 02/22/24 00:29
APTT 26.6 Sec (23.4-35.0) 02/22/24 00:29
Total Bilirubin 1.1 mg/dl (0.2-1.3) 02/22/24 02:55
AST 21 U/L (14-36) 02/22/24 02:55
ALT 15 U/L (0-35) 02/22/24 02:55
Alkaline Phosphatase 77 U/L (38-126) 02/22/24 02:55
Vital Signs and I&O:
Vital Signs
Temp Pulse Resp BP Pulse Ox
97.8 F 86 14 140/70 96
02/23/24 15:00 02/23/24 15:00 02/23/24 15:00 02/23/24 15:00 02/23/24 15:00
I&O
02/22/24 02/23/24 02/24/24
06:59 06:59 06:59
Intake Total 720 / 720
Balance 720 / 720
Physical Exam
Physical Exam
HEENT: Anicteric and Moist mucous membranes
Cardiology: Normal Sinus Rhythm
Pulmonary: Clear
GI: Soft, Non Distended and Tender (minimal)
Extremities: No Edema
Neuro: Non Focal
--- NOTE | 2024-02-23 16:34 | CM ---
IV/Carleysyn. Discharge Plan of Care: Anticipate home with no needs.
[2024-02-23 19:35] VITALS: BP 158/62
[2024-02-23] MEDS: LIDOCAINE 4% PATCH TOPICAL (22:30)
[2024-02-23 23:13] VITALS: BP 162/75
[2024-02-24] MEDS: ZOSYN 50 IV ×3 (01:47→14:43)
[2024-02-24 03:19] VITALS: BP 144/66
[2024-02-24 07:00] VITALS: BP 123/87
[2024-02-24 07:48] LABS: Hematocrit 32.3 % (37.0-47.0); Mean Corp Hgb Conc. 34.1 g/dL (33.0-37.0); Mean Corpuscular Hgb 30.4 pg (27.0-31.0); Mean Corpuscular Volume 89.2 fL (81.0-99.0); Mean Platelet Volume 9.9 fL (7.4-10.4); Platelet Count 195 10^3/uL (130-400); Red Blood Cell Count 3.62 10^6/uL (4.20-5.40); Red Cell Dist. Width 13.1 % (11.5-14.5); White Blood Cell Count 7.7 10^3/uL (4.8-10.8)
[2024-02-24] MEDS: PROTONIX IV 40 MG IV (08:11)
[2024-02-24] MEDS: MIRALAX PO (08:14)
--- NOTE | 2024-02-24 10:55 | CM ---
Patient seen bedside, reports no needs to CM at this time. Patient reports she has family support, does not feel she needs VN. Patient reports she was provided with a list of home care services if needed. CM reviewed IMM, signed, placed in chart. CM
will continue to follow for all discharge planning needs.
Plan; home no needs when stable.
--- NOTE | 2024-02-24 13:45 | W.PN.HOSP.TC ---
Addendum entered and electronically signed by Sher Jenkins MD 02/24/24 15:29:
[facility]
They will schedule OP flex damian on coming Tuesday.
Ok for dc home today
Total time of dc 32 min
Original Note:
Today's Communication/Plan
-
DC planning
Assessment / Plan
Assessment / Plan
Acute hematochezia
Suspected ischemic colitis based on clinical presentation and radiological impression.
No evidence of obstruction of celiac artery. Appreciate vascular input.
EKG in sinus rhythm. No history of cardiac disease.
Unclear etiology. Based on the CAT scan it is watershed area. Advised to keep the blood pressure not too low, avoid dehydration and most importantly treat constipation. This is her first episode. Unclear the role of hypercoagulable workup.
Seems to be a mild case. Hemodynamically stable. Abdominal pain quickly improved.
Appreciate GI input.
Continue the bowel regimen and we will keep her on empirical antibiotics for total of 7 days. Need to follow-up endoscopic eval.
Essential HTN
- BP under goal and not too low
HX IBS
HX vasovagal syncope
tolerating diet.
DC home when okay from GI standpoint.
Anticipated Discharge: Today
Subjective/Interval History
-
Date of Service: February 24, 2024
Having bowel movements but no blood in the stools noted. Tolerating diet.
Denies any abdominal pain.
Objective Data
-
Labs:
Laboratory Results
02/24/24
06:55
WBC 7.7
Hgb 11.0 L
Hct 32.3 L
Plt Count 195
Vital Signs:
Vital Signs
Temp Pulse Resp BP Pulse Ox
98.2 F 73 14 123/87 95
02/24/24 07:00 02/24/24 08:13 02/24/24 07:00 02/24/24 08:13 02/24/24 08:42
I&O
02/23/24 02/24/24 02/25/24
06:59 06:59 06:59
Intake Total 720 / 720 540 / 540
Balance 720 / 720 540 / 540
Review of Systems
-
Constitutional: Denies Fever or Chills
Respiratory: Denies Cough or Trouble Breathing
Cardiac: Denies Chest Pain
Neuro: Denies Dizzy
Physical Exam
-
General: No Apparent Distress
GI: Soft and Nontender
Neuro: AO x 3
Psych: Calm; Negative Confused
Data Reviewed
-
Labs: Labs Reviewed by me
--- NOTE | 2024-02-24 14:16 | W.PN.GI.CBS2 ---
Today's Communication / Plan
-
etiology of symptoms with concern for colitis- likely ischemic as noted on CT, vs infectious, stercoral colitis with hx constipation, IBD within differential
supportive care-- maintain adequate perfusion, hydration
bleeding now resolved but now agreeable for flex
reviewed with Dr. Hamilton can do late in Day Tuesday and will review with Dr. Jenkins for discharge today as tolerating diet and no further bleeding
c-diff, giardia/crypto neg culture pending
discussed chronic constipation-- pt need bowel regiment-- cont Miralax daily adjusting dose as needed in 2-3 weeks add fiber supplement and consider adding senna- stressed to family to encourage compliance with bowel regiment
IV Zosyn
sent message 02/21 to office to arrange 3-4 week follow up
s/p vascular eval
updated family-- daughter luke to assist with setting up for flex [phone]
Assessment / Plan
-
Pt is a 88yo with hx intermittent asthma, basal cell CA, HTN, hypercholesterolemia, vasovagal syncope and chronic constipation. She relates she went to [facility] 02/20 then had a frosty from [employer] then went to then [employer]. On return home she
had crampy pain after no stool for 4 days which is typical for her. She had sweat and feeling of passing out prompting her to lay on floor. She passed hard stool then soft stool with onset of nausea and vomiting food she had eaten. She then
started with blood stool til about midnight .On admission WBC 11,000 with otherwise stable labs . CT concern for ischemic colitis with SMA and SHARATH watershed territory. also noted moderate HH, non obstructing renal stones, atherosclerosis and DDD.
Last colonoscopy [address] Garvin with diverticulosis, external and internal hemorrhoids.
-CT concern for ischemic colitis on CT
-straining followed hard then loose stool then blood with vomiting
-chronic constipation
-hx vasovagal syncope with episode prior to admission
-occasional dysphagia- chronic
other med problems:
-asthma
-basal cell CA
-HTN
-hypercholesterolemia
-HH on imaging
PLAN:
etiology of symptoms with concern for colitis- likely ischemic as noted on CT, vs infectious, stercoral colitis with hx constipation, IBD within differential
supportive care-- maintain adequate perfusion, hydration
bleeding now resolved but now agreeable for flex
reviewed with Dr. Hamilton can do late in Day Tuesday and will review with Dr. Jenkins for discharge today as tolerating diet and no further bleeding
c-diff, giardia/crypto neg culture pending
discussed chronic constipation-- pt need bowel regiment-- cont Miralax daily adjusting dose as needed in 2-3 weeks add fiber supplement and consider adding senna- stressed to family to encourage compliance with bowel regiment
IV Zosyn
sent message 02/21 to office to arrange 3-4 week follow up
s/p vascular eval
updated family-- daughter luke to assist with setting up for flex [phone]
Subjective
Subjective
Date of Service: February 24, 2024
brown stools with some form -- feeling much better -- on low residue diet asking about home but now agreeable for flex
Objective
Data Reviewed
Laboratory Data:
Laboratory Results
02/24/24 06:55
02/22/24 02:55
Laboratory Results
PT 13.7 Sec (11.4-14.6) 02/22/24 00:29
INR 1.07 02/22/24 00:29
APTT 26.6 Sec (23.4-35.0) 02/22/24 00:29
Total Bilirubin 1.1 mg/dl (0.2-1.3) 02/22/24 02:55
AST 21 U/L (14-36) 02/22/24 02:55
ALT 15 U/L (0-35) 02/22/24 02:55
Alkaline Phosphatase 77 U/L (38-126) 02/22/24 02:55
Vital Signs and I&O:
Vital Signs
Temp Pulse Resp BP Pulse Ox
98.2 F 73 14 123/87 95
02/24/24 07:00 02/24/24 08:13 02/24/24 07:00 02/24/24 08:13 02/24/24 08:42
I&O
02/23/24 02/24/24 02/25/24
06:59 06:59 06:59
Intake Total 720 / 720 540 / 540
Balance 720 / 720 540 / 540
Physical Exam
Physical Exam
HEENT: Anicteric and Moist mucous membranes
Cardiology: Normal Sinus Rhythm
Pulmonary: Clear
GI: Soft, Non Distended and Non Tender
Extremities: No Edema
Neuro: Non Focal
[2024-02-24 15:00] VITALS: BP 165/80
--- NOTE | 2024-02-24 15:28 | W.DS.TRANS ---
DC Summary - Senior Environmental Engineer
-
Discharge Instructions:
Discharge Diagnosis/Procedures GI bleed suspected ischemic colitis
Diet Low Residue
Activity As tolerated
Driving Restrictions Not until seen by your Dr
Bathing Restrictions None
Instructions:
Stand-Alone Forms:
Changes to Home Medications: Yes
Discharge Medications:
DC Medications w/original date entered in [employer]
aspirin 81 mg tablet,delayed release 81 mg PO HS 10/09/09
calcium carbonate 600 mg-vitamin D3 20 mcg (800 unit) tablet (Caltrate with Vitamin D3) 1 ea PO HS 10/09/09
multivitamin with folic acid 400 mcg tablet (Tab-A-Jessica) 1 tab PO HS 10/09/09
pravastatin 40 mg tablet 20 mg PO HS 10/09/09
lisinopril 5 mg tablet 5 mg PO DAILY 02/22/24
Saccharomyces boulardii 250 mg capsule (Daily Probiotic (S. boulardii)) 250 mg PO BID #20 caps 02/24/24
amoxicillin 875 mg-potassium clavulanate 125 mg tablet 1 tab PO BID #14 tabs 02/24/24
polyethylene glycol 3350 17 gram oral powder packet (HealthyLax) 17 g PO DAILY #30 ea 02/24/24
Home Medication Changes
New medication-probiotic, Augmentin, MiraLAX
Pending Results: No
--- NOTE | 2024-02-24 16:13 | W.DCSUMMARY ---
Discharge Summary
Discharge Data
Date of Admission: 02/22/24
Date of Discharge: 02/24/24
-
Pending Results: No
Hospital Course
primary diagnosis:
Acute lower GI bleed suspected ischemic colitis
Secondary diagnosis:
constipation
essential hypertension
Hospital course:
patient with a longstanding history of constipation ,has bowel movement once every several days presented with acute abdominal pain abdominal bowel movement for 4 days followed by hematochezia. While she was sitting on the toilet she became
diaphoretic almost passed out. She then had nausea vomiting and had a bowel movement which is bloody.
She had mild abdominal tenderness on presentation with mild leukocytosis. lactic acid was normal. No fevers. Hemodynamically stable. CT of the abdomen pelvis raised the concern for ischemic colitis-Findings are concerning for ischemic colitis
in the [place] territory. No free air. No free fluid or fluid collection. No bowel obstruction.
Stool studies showed no leukocytosis and C. difficile, Cryptosporidium/Giardia were negative. Routine stool cultures were pending at the time of discharge.
It may be ischemic colitis but could also be stercoral colitis because of longstanding history with constipation.
She was put on bowel regimen with MiraLAX with good response and had multiple bowel movements. Her H&H remained stable. Abdominal abdominal pain much improved. She was tolerating a diet. She was seen by GI who recommends empirical antibiotics to
prevent translocation and flex sigmoidoscopy which will be scheduled for next Tuesday.
She was stressed about the importance of laxative bowel regimen for her constipation.
Consultants on board:
GI Mahamed King
Discharge Plan
-
Patient Disposition: Home (Routine Discharge)
Discharge Diagnosis/Procedures: GI bleed suspected ischemic colitis
Condition: Good
Diet: Low Residue
Activity: As tolerated
Driving Restrictions: Not until seen by your Dr
Bathing Restrictions: None
Referrals:
Gisel Guerrero PA-C [Family Provider] - in one week
Bibiana Hamilton, DO [Active] - (Office will call to confirm appt for flex sig on Tuesday. --- instructions -- clear diet Tuesday and Tuesday breakfast then no further diet. 5 hours prior to arrival take mag citrate over 30 minute to 1 hour. Use 2
enema first 2- 3hours prior and second 1 hour prior to arrive use fleet enema. call with any other questions or problems. )
Prescriptions:
New
polyethylene glycol 3350 [HealthyLax] 17 gram Powder In Packet
17 g PO DAILY Qty: 30 0RF
amoxicillin-pot clavulanate 875-125 mg tablet
1 tab PO BID Qty: 14 0RF
Rx Instructions:
if you develop diarrhea call your PCP for an alternative
Saccharomyces boulardii [Daily Probiotic (S. boulardii)] 250 mg capsule
250 mg PO BID Qty: 20 0RF
Continued
pravastatin 40 MG tablet
20 mg PO HS
aspirin 81 MG tablet,delayed release (DR/EC)
81 mg PO HS
multivitamin with folic acid [Tab-A-Jessica] 1 TABLET tablet
1 tab PO HS
calcium carbonate-vitamin D3 [Caltrate with Vitamin D3] 1 EACH tablet
1 ea PO HS
lisinopril 5 mg Tablet
5 mg PO DAILY
Discharge Orders:
Discharge Patient (As Directed); Ordered 02/24/24
Ordered By: Sher Jenkins
Discharge Date and Time
Print Language: [place]
== END 2024-02-24 16:20 | disposition home or self-care (01) | DRG 395 ==
LOC: 2 NORTH 02:06
PROVIDERS: Nurse Practitioner Adult Health; ADMITTING PHYSICIAN Internal Medicine; ATTENDING PHYSICIAN Internal Medicine; CONSULT PHYSICIAN Internal Medicine; EMERGENCY PHYSICIAN Emergency Medicine; FAMILY PHYSICIAN Physician Assistant; OTHER PHYSICIAN Surgery Vascular Surgery
DX: K55.9 Vascular disorder of intestine, unspecified (principal); I10 Essential (primary) hypertension; E78.00 Pure hypercholesterolemia, unspecified; K58.1 Irritable bowel syndrome with constipation; K21.9 Gastro-esophageal reflux disease without esophagitis; Z79.82 Long term (current) use of aspirin
CPT/HCPCS: 74177; 80053; 83605; 85014; 85018; 85025; 85027; 85610; 85730; 86850; 86900; 86901; 87045; 87046; 87324; 87328; 87329; 87427; 87449; 89055; 93005; 94760; 96361; 96374; 96375; 99285; Q9967

== ENCOUNTER → 2024-02-28 06:23 | Day surgery (SDC) | payer MEDICARE, BC, SELFPAY | LOC: GI 06:23 | PROVIDERS: ATTENDING PHYSICIAN Internal Medicine | DX: K63.89 Other specified diseases of intestine (principal); K64.9 Unspecified hemorrhoids; K92.1 Melena; R93.3 Abnormal findings on diagnostic imaging of other parts of digestive tract | CPT/HCPCS: 45331; 88305 ==

== ENCOUNTER → 2024-11-02 11:59 | Outpatient (REF) | payer OTHER, SELFPAY ==
[2024-11-02 16:59] LABS: Urine Albumin Negative (Neg - Trace); Urine Bilirubin Negative (Negative); Urine Character Clear (Clear); Urine Color Yellow; Urine Glucose Negative (Negative); Urine Ketone Negative (Negative); Urine Leukocyte Negative (Negative); Urine Nitrite Negative (Negative); Urine Occult Blood Negative (Negative); Urine Urobilinogen Negative (Neg - 1+); Urine pH 6.5 (5.0-9.0)
== END ==
LOC: CLAB 11:59
PROVIDERS: ATTENDING PHYSICIAN Physician Assistant
DX: R35.0 Frequency of micturition (principal)
CPT/HCPCS: 81003; 87086

== ENCOUNTER → 2024-11-14 08:20 | Outpatient (REF) | payer OTHER, SELFPAY ==
[2024-11-14 09:10] LABS: % Basophils 1.2 % (0-2); % Eosinophils 3.8 % (0-6); % Immature Granulocytes 0.4 % (0-0.5); % Monocytes 7.6 % (1.7-9.3); Absolute Basophils 0.1 10^3/uL (0-0.2); Absolute Eosinophils 0.2 10^3/uL (0-0.7); Absolute Lymphocytes 1.5 10^3/uL (1.2-3.4); Absolute Monocytes 0.4 10^3/uL (0.1-0.6); Absolute Neutrophils 2.9 10^3/uL (1.4-6.5); Hematocrit 36.8 % (37.0-47.0); Hemoglobin 12.4 g/dL (12.0-16.0); Mean Corp Hgb Conc. 33.7 g/dL (33.0-37.0); Mean Corpuscular Hgb 30.4 pg (27.0-31.0); Mean Corpuscular Volume 90.2 fL (81.0-99.0); Mean Platelet Volume 9.4 fL (7.4-10.4); Nucleated Red Blood Cells % 0 %; Platelet Count 237 10^3/uL (130-400); Red Blood Cell Count 4.08 10^6/uL (4.20-5.40); Red Cell Dist. Width 13.3 % (11.5-14.5)
[2024-11-14 10:19] LABS: ALT (SGPT) 15 U/L (0-35); AST (SGOT) 19 U/L (14-36); Alkaline Phosphatase 67 U/L (38-126); Blood Urea Nitrogen 14 mg/dl (7-17); Calcium 9.5 mg/dl (8.4-10.2); Carbon Dioxide 29 mmol/L (22-30); Chloride 106 mmol/L (98-107); Glucose 99 mg/dl (70-99); HDL Cholesterol 73 mg/dl; LDL Cholesterol, Calculated 92 mg/dl; Potassium 4.6 mmol/L (3.5-5.1); Sodium 139 mmol/L (135-145); Total Bilirubin 1.2 mg/dl (0.2-1.3); Total Cholesterol 190 mg/dl (50-199); Total Protein 6.6 g/dl (6.3-8.2); Triglyceride 128 mg/dl (10-149); Very Low Density Lipoprotein 25 mg/dl (0-30); eGFR > 60.00
== END ==
LOC: REG 08:20
PROVIDERS: ATTENDING PHYSICIAN Physician Assistant
DX: Z87.19 Personal history of other diseases of the digestive system (principal); E78.2 Mixed hyperlipidemia; I10 Essential (primary) hypertension; J45.20 Mild intermittent asthma, uncomplicated; Z85.820 Personal history of malignant melanoma of skin
CPT/HCPCS: 36415; 80053; 80061; 85025

== ENCOUNTER → 2025-05-22 09:22 | Outpatient (REF) | payer OTHER, SELFPAY | LOC: WDC 09:22 | PROVIDERS: ATTENDING PHYSICIAN Physician Assistant | DX: N63.25 Unspecified lump in the left breast, overlapping quadrants (principal) | CPT/HCPCS: 76642; 77062; 77066 ==

== ENCOUNTER → 2025-05-29 08:17 | Outpatient (REF) | payer OTHER, SELFPAY ==
--- NOTE | 2025-05-29 13:39 | OID.BR.INTR ---
[facility] Breast Navigator - Initial
- -
Date of Contact: 05/29/25
Met with patient. Patient given written information on navigator service available at [facility]. Will follow up as needed per protocol.
== END ==
LOC: WDC 08:17
PROVIDERS: ATTENDING PHYSICIAN Physician Assistant
DX: N63.42 Unspecified lump in left breast, subareolar (principal)
CPT/HCPCS: 19083; 88305; 88341; 88342; 88360; A4648

== ENCOUNTER → 2025-06-19 11:01 | Outpatient (REF) | payer OTHER, SELFPAY | LOC: PET 11:01 | PROVIDERS: ATTENDING PHYSICIAN Surgery | DX: C50.412 Malignant neoplasm of upper-outer quadrant of left female breast (principal); Z17.0 Estrogen receptor positive status [ER+] | CPT/HCPCS: 36415; 80053; 82248; 85025 ==

== ENCOUNTER 2025-06-24 11:38 | Emergency (ER) | payer OTHER, SELFPAY ==
[2025-06-24 11:45] VITALS: BP 120/55
[2025-06-24 11:47] VITALS: BP 120/65
[2025-06-24 11:48] VITALS: BMI 23.8
[2025-06-24 12:00] VITALS: BP 138/65
[2025-06-24 12:09] LABS: Hematocrit 41.1 % (37.0-47.0); Hemoglobin 13.6 g/dL (12.0-16.0); Mean Corp Hgb Conc. 33.1 g/dL (33.0-37.0); Mean Corpuscular Volume 89.7 fL (81.0-99.0); Nucleated Red Blood Cells % 0 %; Platelet Count 334 10^3/uL (130-400); Red Cell Dist. Width 13.5 % (11.5-14.5)
[2025-06-24] MEDS: NSS 1000 IV (12:34)
[2025-06-24] MEDS: ZOFRAN 4 MG IV (12:34)
[2025-06-24 12:37] LABS: ALT (SGPT) 17 U/L (0-35); AST (SGOT) 26 U/L (14-36); Albumin 5.0 g/dl (3.5-5.0); Alkaline Phosphatase 82 U/L (38-126); Blood Urea Nitrogen 13 mg/dl (7-17); Calcium 10.7 mg/dl (8.4-10.2); Carbon Dioxide 28 mmol/L (22-30); Chloride 100 mmol/L (98-107); Estimated Creatinine Clearance 33 ml/min; Glucose 140 mg/dl (70-99); Potassium 4.8 mmol/L (3.5-5.1); Sodium 137 mmol/L (135-145); Total Protein 8.1 g/dl (6.3-8.2); eGFR > 60.00
[2025-06-24 12:45] LABS: Lipase 194 U/L (23-300)
--- NOTE | 2025-06-24 12:55 | ED.GENMED ---
History of Present Illness
General
Chief Complaint: Abdominal Symptoms
Time Seen by Provider: 06/24/25 12:00
History of Present Illness
History of Present Illness:
89-year-old female with history of IBS and recent diagnosis of breast cancer presenting to the emergency department for vomiting and diarrhea. Patient reports that this morning she had an episode of diarrhea. She then started to have a pain in her
stomach, so 1 on the toilet and had an additional episode of diarrhea. She then started to have nausea with episode of vomiting. Patient lives at home with her , who called the medics secondary to her symptoms. Patient arrives with her 2
daughters who note that patient has been under a lot of stress recently with a new diagnosis of breast cancer. They also note that she has very bad IBS. Patient denies eating any abnormal foods last evening. Notes surgical history of
hysterectomy. No report of any recent fever. Denies additional acute medical complaint
Past History
Past History
ED Past Medical History: Asthma, HTN, Hypercholesterolemia and Other (IBS)
ED Past Surgical History: Gynecological (partial hysterectomy)
Social History
Tobacco: Non-smoker
Alcohol: Occasional
Drug: None
Personal:
Living: with family
Employment: Retired
Family History
Family History: Other (non-contributory )
Phy Exam
Physical Exam
Physical Exam:
General: Well-appearing, no clinical signs of dehydration, nontoxic and in no acute distress
HEENT: protecting airway
Neck: appears supple
CV: Normal heart rate, regular rhythm
Resp: No accessory muscle use, no increased work of breathing
Abd: Soft and non-distended, mild tenderness to upper abdomen without rebound or guarding.
Extremities: No deformities, no swelling, no erythema, pulses and sensation intact
Neuro: alert, no focal neurologic deficit
: deferred
Rectal: deferred
Psych: Normal affect
Skin: Intact
Course
Orders/Labs/Results
Orders:
Orders
06/24/25 11:57
Complete Blood Count/With Diff Urgent
Comprehensive Metabolic Panel Urgent
Lipase Urgent
06/24/25 12:22
Add On- LAB Urgent
Tests Added?: lipase
0.9% Sodium Chloride 1000 ml [Nss] 1,000 ml IV BOLUS
Ondansetron Injectable [Zofran] 4 mg IV NOW STA
Abnormal Lab Results
06/24/25
11:57
WBC 10.9 H 10^3/uL
(4.8-10.8)
Abs Immat Gran (auto) 0.1 H 10^3/uL
(0-0.05)
Absolute Neuts (auto) 9.0 H 10^3/uL
(1.4-6.5)
Immature Gran % 0.6 H %
(0-0.5)
Neutrophils % 82.7 H %
(42.2-75.2)
Lymphocytes % 11.8 L %
(20.5-51.1)
Glucose 140 H mg/dl
(70-99)
Calcium 10.7 H mg/dl
(8.4-10.2)
Total Bilirubin 1.4 H mg/dl
(0.2-1.3)
06/24/25 11:57
06/24/25 11:57
Vital Signs
Initial and Last Documented VS:
Initial Vital Signs
Pulse Resp BP
67 15 120/55
06/24/25 11:45 06/24/25 11:45 06/24/25 11:45
Last Documented Vital Signs
Temp Pulse Resp BP Pulse Ox
97.1 F 69 16 143/70 94
06/24/25 11:47 06/24/25 13:00 06/24/25 13:00 06/24/25 13:00 06/24/25 12:58
MDM/Problems Addressed
MDM/Problems Addressed:
89-year-old female with history of IBS and recent diagnosis of breast cancer presenting for nausea, vomiting, abdominal discomfort. Vital signs on arrival are normal.
On exam patient resting comfortably, no acute distress. No emesis or retching. Benign cardiac and pulmonary exam. On abdominal exam, minimal tenderness to the upper abdomen without rebound or guarding. Suspect possible viral gastroenteritis
versus IBS flare. Lower suspicion for serious intra-abdominal process or infection given acute onset of symptoms and reassuring examination. Will obtain laboratory analysis and treat with IV fluids and Zofran and reassess for improvement.
14:00 - Labs show mild leukocytosis. However on reassessment patient remained stable. Continue to suspect a viral gastroenteritis as etiology of symptoms. Patient tolerating p.o. At this time no indication for advanced abdominal imaging. Family
notes that patient recently had a PET scan completed, however they had not yet gotten the results. Results provided to the patient. Return precautions discussed and patient verbalized understanding.
*Pulse Oximetry
SaO2: 94
Oxygen Mode of Delivery: Room air
Patient hypoxic: no
*Critical Care Note
Total Time (30-74mins, 75-104mins- exclusive of procedures): Not Applicable
ED Attending Note
-
Portions of this chart may have been created with voice recognition software.� Occasional wrong word or��sound alike� substitutions may have occurred due to the inherent limitations of voice recognition software.
Discharge Plan
Departure
Prescriptions:
No Action
pravastatin 40 MG tablet
20 mg PO HS
aspirin 81 MG tablet,delayed release (DR/EC)
81 mg PO HS
multivitamin with folic acid [Tab-A-Jessica] 1 TABLET tablet
1 tab PO HS
calcium carbonate-vitamin D3 [Caltrate with Vitamin D3] 1 EACH tablet
1 ea PO HS
lisinopril 5 mg Tablet
5 mg PO DAILY
polyethylene glycol 3350 [HealthyLax] 17 gram Powder In Packet
17 g PO DAILY Qty: 30 0RF
amoxicillin-pot clavulanate 875-125 mg tablet
1 tab PO BID Qty: 14 0RF
Rx Instructions:
if you develop diarrhea call your PCP for an alternative
Saccharomyces boulardii [Daily Probiotic (S. boulardii)] 250 mg capsule
250 mg PO BID Qty: 20 0RF
Referrals:
Gisel Guerrero PA-C [Family Provider, Internal Medicine]
Interventions
Interventions:
*Risk Screen - Suicide Last Done: 06/24/25 11:46
*General Assessment Last Done: 06/24/25 11:59
*Neglect/Abuse Screening Last Done: 06/24/25 11:46
*ED- Fall Risk Assessment Last Done: 06/24/25 11:45
*ED COVID-19 Vaccine History Last Done: 06/24/25 11:46
*ED Influenza Vaccine History Last Done: 06/24/25 11:46
CF-Ixcjzj-Kjbqlfxlwq Assessment Last Done: 06/24/25 11:59
Discharge Date and Time
Print Language: SWEDISH
[2025-06-24 13:00] VITALS: BP 143/70
== END 2025-06-24 15:27 | disposition home or self-care (01) ==
LOC: EMR 11:38
PROVIDERS: EMERGENCY PHYSICIAN Student in an Organized Health Care Education/Training Program; FAMILY PHYSICIAN Physician Assistant
DX: K52.9 Noninfective gastroenteritis and colitis, unspecified (principal); D72.829 Elevated white blood cell count, unspecified; C50.919 Malignant neoplasm of unspecified site of unspecified female breast; I10 Essential (primary) hypertension; E78.00 Pure hypercholesterolemia, unspecified; J45.909 Unspecified asthma, uncomplicated; Z79.82 Long term (current) use of aspirin
CPT/HCPCS: 99284; 96374; 96361; 80053; 83690; 85025; 87045; 87046; 87077; 87427

== ENCOUNTER → 2025-09-03 13:39 | Outpatient (REF) | payer OTHER, SELFPAY | LOC: RAD 13:39 | PROVIDERS: ATTENDING PHYSICIAN Internal Medicine Hematology & Oncology | DX: Z78.0 Asymptomatic menopausal state (principal); C50.412 Malignant neoplasm of upper-outer quadrant of left female breast; Z85.820 Personal history of malignant melanoma of skin | CPT/HCPCS: 77080 ==